=== PATIENT | male | born 1970 | race Caucasian/White ===

== ENCOUNTER → 2019-12-03 | Outpatient (CLI) | payer BC ==
[~2019-12-03] MED LIST: ASPIRIN E.C. 8181 MG PO; BYSTOLIC5 MG PO; CARDI-OMEGA1000 MG PO; CLARINEX 5MG5 MG PO; FLONASE NASAL S16 GM NS; LIPITOR 10MG10 MG PO; MULTIPLE VITAMI1 CAP PO; NEXIUM 40MG40 MG PO; PRIL40 PO; PROAIR HFA0.09 MG/AC IH; RT ADVAIR 228 DISKUS IH; RT SPIRIVA18 MCG IH; ZESTRIL40 MG PO
== END ==
LOC: COL.PUL
DX: R06.02 Shortness of breath (principal)

== ENCOUNTER 2021-06-25 15:42 | Observation (INO) | payer BC ==
[~2021-06-25] VITALS: Ht 177.8 cm; Wt 100.1 kg
[2021-06-25 16:23] LABS: BASO # 0.1 K/mm3 (0.0-0.2); BASO % 0.3 % (0.0-2.0); EOS # 0.2 K/mm3 (0.0-0.7); EOS % 0.9 % (0.0-4.0); GRAN # 14.2 K/mm3 (1.4-6.5); GRAN % 82.9 % (42.2-75.2); HEMATOCRIT 46.1 % (42.0-52.0); HEMOGLOBIN 16.5 g/dl (13.5-18.0); LYMPH # 1.2 K/mm3 (1.2-3.4); LYMPH % 7.3 % (20.0-51.0); MEAN CELL VOLUME 87 fl (80.0-100.0); MEAN CORPUSCULAR HEMOGLOBIN 31 pg (27-31); MEAN CORPUSCULAR HGB CONC 36 g/dl (33.0-37.0); MEAN PLATELET VOLUME 9.9 fl (7.4-10.4); MONO # 1.4 K/mm3 (0.1-0.6); MONO % 8.2 % (1.7-9.3); PLATELET COUNT 273 K/mm3 (130-400); RED BLOOD COUNT 5.33 M/mm3 (4.20-5.60); REDCELL DISTRIBUTION WIDTH-CV 12.5 % (11.5-14.5)
[2021-06-25 16:38] LABS: ALBUMIN 4.1 gm/dL (3.5-5.0); BILIRUBIN,TOTAL 1.4 mg/dL (0.2-1.2); CALCIUM 9.5 mg/dL (8.4-10.2); CREATININE, serum 1.1 mg/dL (0.72-1.25); POTASSIUM 4.3 mmol/L (3.5-4.5); TOTAL PROTEIN 7.5 gm/dL (6.2-8.1)
[2021-06-25 16:43] LABS: TROPONIN-I 0.018 ng/mL (0.00-0.033)
[2021-06-25] MEDS ORDERED: JANUMXR100-1000 PO (18:38)
[2021-06-25] MEDS ORDERED: NORVASC 10MG10 MG PO (18:38)
[2021-06-25] MEDS ORDERED: PEPCID 20MG TAB20 MG PO (18:38)
[2021-06-25] MEDS ORDERED: TRULICITY0.75 MG/0. SQ (18:39)
[2021-06-25] MEDS ORDERED: LOPRESSOR100 MG PO (18:39)
[2021-06-25] MEDS ORDERED: RT ADVAIR 228 DISKUS IH (18:41)
[2021-06-25] MEDS ORDERED: DESYREL 100MG100 MG PO (18:42)
[2021-06-25] MEDS ORDERED: CLARITIN REDITA10 MG PO (18:43)
[2021-06-25] MEDS ORDERED: OMEGA-3 1000 MG1 CAP PO (18:44)
[2021-06-25] MEDS ORDERED: COMPLETE MULTI1 TAB PO (18:44)
[2021-06-25 19:42] LABS: MAGNESIUM 1.6 mg/dL (1.6-2.6)
[2021-06-25 21:14] VITALS: BP 134/77; PULSE 106; TEMP 98.7
[2021-06-26] VITALS (7 sets, daily range): BP systolic 121–140; BP diastolic 60–85; PULSE 90–107; TEMP 97.5–99.3
--- NOTE | 2021-06-26 00:02 | NUR ---
PATIENT UP TO ROOM 342, ALERT AND ORIENTED. MED RX AND ADMIT ASSESSMENTS COMPLETED. SON AT BEDSIDE. 4 L 02 VIA OXYMASK. TELE REPORTING SINUS TACH. HS MEDICATIONS GIVEN. BLOOD SUGAR 224, 2 UNITS NOVOLOG GIVEN. DENIES PAIN, DENIES SOB.
[2021-06-26 06:32] LABS: HEMATOCRIT 46.2 % (42.0-52.0); MEAN CELL VOLUME 89 fl (80.0-100.0); MEAN CORPUSCULAR HEMOGLOBIN 31 pg (27-31); MEAN CORPUSCULAR HGB CONC 35 g/dl (33.0-37.0); MEAN PLATELET VOLUME 10.6 fl (7.4-10.4); PLATELET COUNT 222 K/mm3 (130-400); RED BLOOD COUNT 5.22 M/mm3 (4.20-5.60); REDCELL DISTRIBUTION WIDTH-CV 12.4 % (11.5-14.5)
[2021-06-26 06:48] LABS: CREATININE, serum 1.13 mg/dL (0.72-1.25); POTASSIUM 4.4 mmol/L (3.5-4.5)
[2021-06-26 07:06] LABS: BAND 12 % (0-10); LYMPHOCYTE 6 % (20.0-51.0); NEUTROPHILS 81 % (42.0-75.2); PLATELET ESTIMATE NORMAL (NORMAL)
--- NOTE | 2021-06-26 12:27 | NUR ---
plugger worker met with patient to discuss discharge plan. Patient currently lives at home with his son Aamir ([phone]) in [place]. He is independent with all of his ADL's and does not utilize any DME to assist with mobility. Patient reports that he does use inhalers at home but he does not have any home oxygen needs at this time. Currently he is on 4L in bed. PCP is Dr. Suyapa Morataya and he utilizes [facility] [place] [place] for medications with no cost difficulty. Patient reports that he does not currently have a DPOA-HC established and is not interested in one at this time. He is and has two biological children and one child that was his wifes that he legally adopted. Patient is planning on returning home once medically ready. Discharge plan: Home
--- NOTE | 2021-06-26 13:07 | NUR ---
First visit from the pond tender. No needs right now.
--- NOTE | 2021-06-26 18:31 | NUR ---
PATIENT HAS DONE WELL TODAY. TOLERATED ALL OF HIS MEALS WELL WITHOUT ANY NAUSEA OR VOMITING. PATIENT STILL IS HAVING SOME EXPIR. WHEEZING. HE IS MOVING AROUND THE ROOM WELL WITHOUT ANY TROUBLE OR SOB. PATIENT TOOK A SHOWER WITHOUT ANY ISSUES MID AFTERNOON. PLAN OF CARE IS FOR ANOTHER DAY OR TWO OF HOSPITALLIZATION AND MEDICATIONS AND TO WEAN OFF OXYGEN BEFORE GOING HOME. PT AWARE OF PLAN OF CARE. PT. TOLERATED ALL MEDICATIONS WELL.
--- NOTE | 2021-06-26 19:00 | NUR ---
RECEIVED CHANGE OF SHIFT REPORT FROM DAY SHIFT RN. PATIENT RESTING IN BED WITH OXYGEN PER MASK ON. TELE IN PLACE. UP IN ROOM WITH SUPERVISION AT THIS TIME. DENIES ANY NEEDS OR COMPLAINTS.
[2021-06-27 03:27] VITALS: BP 122/63; PULSE 93; TEMP 97.4
[2021-06-27 06:19] LABS: BASO % 0.1 % (0.0-2.0); GRAN # 19.8 K/mm3 (1.4-6.5); GRAN % 92.8 % (42.2-75.2); HEMATOCRIT 43.7 % (42.0-52.0); HEMOGLOBIN 14.8 g/dl (13.5-18.0); LYMPH # 0.7 K/mm3 (1.2-3.4); MEAN CELL VOLUME 91 fl (80.0-100.0); MEAN CORPUSCULAR HEMOGLOBIN 31 pg (27-31); MEAN CORPUSCULAR HGB CONC 34 g/dl (33.0-37.0); MEAN PLATELET VOLUME 10.9 fl (7.4-10.4); MONO # 0.7 K/mm3 (0.1-0.6); MONO % 3.2 % (1.7-9.3); PLATELET COUNT 252 K/mm3 (130-400); REDCELL DISTRIBUTION WIDTH-CV 12.5 % (11.5-14.5)
[2021-06-27 06:31] LABS: CALCIUM 8.9 mg/dL (8.4-10.2); CREATININE, serum 1.27 mg/dL (0.72-1.25); POTASSIUM 4.1 mmol/L (3.5-4.5)
--- NOTE | 2021-06-27 06:44 | NUR ---
Shift report recieved from hourly shift RN
--- NOTE | 2021-06-27 06:51 | NUR ---
reported critical lab result to Kathleen delong RN.
--- NOTE | 2021-06-27 07:14 | NUR ---
CHANGE OF SHIFT REPORT GIVEN TO DAY SHIFT RNCHEVY.
[2021-06-27 07:55] VITALS: BP 122/73; PULSE 81; TEMP 97.7
--- NOTE | 2021-06-27 08:19 | NUR ---
Pt. resting in sitting position in bed. Has just completed his breakfast. SSI given as ordered. IV R hand flushed without difficulty. Pt. denies pain/discomfort. Denies shortness of air or difficulty breathing. Call light is within his reach. He denies further needs at this time
[2021-06-27 15:16] VITALS: BP 149/84; PULSE 122; TEMP 98
--- NOTE | 2021-06-27 18:22 | NUR ---
Pt. sitting in recliner visiting with his son. He denies pain or discomfort. Denies shortness of air or difficulty breathing. He denies further needs at this time. Call light is within his reach
--- NOTE | 2021-06-27 19:07 | NUR ---
SHIFT REPORT FROM ALL JONES. ALERT AND ORIENTED. SITTING AT BEDSIDE TALKING WITH SON. NO OXYGEN IN PLACE. DENIES NEEDS. STATES HE IS DOING VERY WELL.
[2021-06-27 19:20] VITALS: BP 149/72; PULSE 98; TEMP 97.8
[2021-06-27 23:28] VITALS: BP 141/79; PULSE 99; TEMP 98.2
--- NOTE | 2021-06-28 01:09 | NUR ---
PATIENT DOING WELL TONIGHT. ALERT AND ORIENTED. DENIES PAIN. O2 SATS STABLE ON ROOM AIR. R HAND IV PATENT AND FLUSHES EASILY. CALL FROM TELE THAT PATIENT WAS TACHY IN THE 150S, CHECKED ON PATIENT WHO UP TO SIDE OF BED CHOKING ON HIS WATER. STATED HE SWALLOWED DOWN THE WRONG PIPE. SAT WITH HIM TILL HE RECOVERED. HR RETURNED TO 110S WHICH WAS VERIFIED WITH CAR REPAIRER. BLOOD SUGAR 284 TREATED PER SSI. PATIENT CURRENTLY RESTING IN BED. RESPIRATIONS EVEN AND UNLABORED. CALL LIGHT IN REACH.
[2021-06-28 03:23] VITALS: BP 123/68; PULSE 107; TEMP 98.5
--- NOTE | 2021-06-28 06:48 | NUR ---
Pt. awake and sitting in bed. He has just ordered breakfast. He denies pain. Denies shortness of air or difficulty breathing. Call light within reach. He denies further needs at this time
[2021-06-28 07:11] VITALS: BP 137/87; PULSE 83; TEMP 97.9
[2021-06-28 07:41] LABS: HEMATOCRIT 43.7 % (42.0-52.0); HEMOGLOBIN 15.3 g/dl (13.5-18.0); MEAN CELL VOLUME 89 fl (80.0-100.0); MEAN CORPUSCULAR HEMOGLOBIN 31 pg (27-31); MEAN CORPUSCULAR HGB CONC 35 g/dl (33.0-37.0); MEAN PLATELET VOLUME 9.9 fl (7.4-10.4); PLATELET COUNT 242 K/mm3 (130-400); RED BLOOD COUNT 4.92 M/mm3 (4.20-5.60); REDCELL DISTRIBUTION WIDTH-CV 12.7 % (11.5-14.5)
[2021-06-28 07:57] LABS: CALCIUM 8.8 mg/dL (8.4-10.2); CREATININE, serum 1.19 mg/dL (0.72-1.25); POTASSIUM 4.4 mmol/L (3.5-4.5)
[2021-06-28 08:24] LABS: BAND 7 % (0-10); LYMPHOCYTE 1 % (20.0-51.0); NEUTROPHILS 92 % (42.0-75.2); PLATELET ESTIMATE NORMAL (NORMAL)
--- NOTE | 2021-06-28 08:24 | NUR ---
Pt. awake, sitting up in bed watching television. He denies pain or discomfort. Denies shortness of air or difficulty breathing. He remains on O2 via oxy-mask at 4L. He denies further needs at this time. Call light is within his reach
--- NOTE | 2021-06-28 09:06 | NUR ---
ICU nurse calling to report heart rate in 140's. Pt. reports he was coughing. Dr. Sarmiento here to see pt. Beta-terrell will be restarted this a.m. EKG order acknowledged. Pt. denies pain or discomfort. Denies feeling short of breath or having difficulty breathing
[2021-06-28] MEDS ORDERED: PREDNISONE20 MG PO (09:08)
[2021-06-28] MEDS ORDERED: RT ADVAIR 228 DISKUS IH (09:08)
[2021-06-28 11:45] VITALS: BP 129/76; PULSE 78; TEMP 98.2
--- NOTE | 2021-06-28 16:14 | NUR ---
Pt Health Summary, Home Medications, and Discharge Summary reviewed with patient and his son. Discussed the importance of keeping follow-up appointments. Belonging were gathered by pt. and his son. They had no further questions. Pt. escorted to vehicle and seatbelted for ride home
== END 2021-06-28 15:10 | disposition home or self-care (01) ==
LOC: COL.ER 15:42 → SURG 19:30
PROVIDERS: Physician Assistant; Student in an Organized Health Care Education/Training Program; ADMIT Student in an Organized Health Care Education/Training Program
DX: J45.901 Unspecified asthma with (acute) exacerbation (principal); J96.01 Acute respiratory failure with hypoxia; R00.0 Tachycardia, unspecified; R65.10 Systemic inflammatory response syndrome (SIRS) of non-infectious origin without acute organ dysfunction; E78.5 Hyperlipidemia, unspecified; I10 Essential (primary) hypertension; K21.9 Gastro-esophageal reflux disease without esophagitis; E11.9 Type 2 diabetes mellitus without complications; F17.210 Nicotine dependence, cigarettes, uncomplicated; Z79.84 Long term (current) use of oral hypoglycemic drugs; Z79.899 Other long term (current) drug therapy
CPT/HCPCS: 99232-AI; 99233-AI; A9284; G0378; J0456; J1200; J1650; J1815; J2920; J2930; J3475; J7030; J7050

== ENCOUNTER 2022-03-27 19:12 | Emergency (ER) | payer BC ==
[~2022-03-27] VITALS: Ht 177.8 cm; Wt 100.0 kg
[~2022-03-27 19:12] MED LIST changes: +CLARITIN REDITA10 MG PO; +COMPLETE MULTI1 TAB PO; +DESYREL 100MG100 MG PO; +JANUMXR100-1000 PO; +LOPRESSOR100 MG PO; +NORVASC 10MG10 MG PO; +OMEGA-3 1000 MG1 CAP PO; +PEPCID 20MG TAB20 MG PO; +PREDNISONE20 MG PO; +TRULICITY0.75 MG/0. SQ
[2022-03-27 19:21] VITALS: TEMP 99.4
[2022-03-27 20:45] LABS: BASO # 0.1 K/mm3 (0.0-0.2); BASO % 0.7 % (0.0-2.0); EOS # 0.1 K/mm3 (0.0-0.7); EOS % 1.1 % (0.0-4.0); GRAN % 71.4 % (42.2-75.2); HEMATOCRIT 50.2 % (42.0-52.0); HEMOGLOBIN 17.8 g/dl (13.5-18.0); LYMPH # 1.2 K/mm3 (1.2-3.4); LYMPH % 12.3 % (20.0-51.0); MEAN CELL VOLUME 90 fl (80.0-100.0); MEAN CORPUSCULAR HEMOGLOBIN 32 pg (27-31); MEAN CORPUSCULAR HGB CONC 36 g/dl (33.0-37.0); MEAN PLATELET VOLUME 10.5 fl (7.4-10.4); MONO # 1.4 K/mm3 (0.1-0.6); MONO % 14.2 % (1.7-9.3); PLATELET COUNT 203 K/mm3 (130-400); RED BLOOD COUNT 5.61 M/mm3 (4.20-5.60); REDCELL DISTRIBUTION WIDTH-CV 12.1 % (11.5-14.5)
[2022-03-27 21:02] LABS: ALBUMIN 3.9 gm/dL (3.5-5.0); BILIRUBIN,TOTAL 0.5 mg/dL (0.2-1.2); CALCIUM 9.7 mg/dL (8.4-10.2); CREATININE, serum 1.26 mg/dL (0.72-1.25); POTASSIUM 4.9 mmol/L (3.5-4.5); TOTAL PROTEIN 7.4 gm/dL (6.2-8.1)
[2022-03-27] MEDS ORDERED: ZITHROMAX Z PA250 MG PO (21:51)
[2022-03-27] MEDS ORDERED: PREDNISONE20 MG PO (21:51)
[2022-03-27] MEDS ORDERED: PROAIR HFA0.09 MG/AC IH (21:51)
[2022-03-27 22:00] VITALS: BP 133/83; PULSE 93
== END 2022-03-27 22:03 | disposition home or self-care (01) ==
LOC: COL.ER 19:12
PROVIDERS: Personal Emergency Response Attendant
DX: J45.901 Unspecified asthma with (acute) exacerbation (principal); F17.200 Nicotine dependence, unspecified, uncomplicated; Z20.822 Contact with and (suspected) exposure to COVID-19
CPT/HCPCS: J2930; J7030